=== PATIENT | female | born 1985 | race Caucasian/White ===

== ENCOUNTER 2022-04-19 14:55 | Emergency (ER) | payer BC, SELFPAY ==
--- NOTE | ~2022-04-19 | XR_ITS ---
XR tibia fibula LT 2V 04/19/2022 15:19 INDICATION: Left leg pain after injury PROCEDURE: 2 views left tibia/fibula COMPARISON: No prior studies for comparison. FINDINGS: Fracture, dislocation or subluxation is not identified. The soft tissues appear within norm al limits. No foreign bodies are identified. IMPRESSION: 1: NO ACUTE BONE OR JOINT ABNORMALITY IDENTIFIED. Reviewed, dictated and finalized at location B. [facility] [employer]
--- NOTE | 2022-04-19 15:00 | ED.LOWEXIN ---
HPI - Extremity Injury (Lower) General Chief Complaint: Extremity Injury, Lower Stated Complaint: INJURED L LEG Time Seen by Provider: 04/19/22 15:00 Source: patient and RN notes reviewed History of Present Illness HPI Narrative: Patient is a 36-year-old female who presents to urgent care with complaints of left lower leg pain. Patient states that she was scanned approximately 1 week ago, fell and hit the boot on to her left lower leg. Patient states that she has had some numbness and tingling radiating down the leg and into the foot at times. Patient has attempted to keep it elevated with the use of ice. Patient is also use Tylenol and ibuprofen. 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 No other acute complaints or injuries. No acute distress noted. Patient aware of the plan of care. Some parts of this dictation were generated by voice recognition software and may contain typographical and/or grammatical inaccuracies. Related Data Home Medications Medication Instructions Recorded Confirmed No Home Medications 04/19/22 04/19/22 Allergies Allergy/AdvReac Type Severity Reaction Status Date / Time No Known Allergies Allergy Verified 04/19/22 15:07 Review of Systems Review of Systems: CONSTITUTIONAL: Denies fever, chills, or sweats. EYES: Denies visual changes, redness, or discharge. ENT: Denies rhinorrhea, congestion, sore throat, or otalgia. CARDIOVASCULAR: Denies chest pain, palpitations, or edema. RESPIRATORY: Denies cough or dyspnea. GASTROINTESTINAL: Denies abdominal pain, nausea, vomiting, or diarrhea. GENITOURINARY: Denies dysuria or hematuria. SKIN: Denies rash or itching. MUSCULOSKELETAL: Reports of [id number] pain to the left lower leg radiating to the left foot NEUROLOGIC: Denies headache, numbness, or weakness. All other systems reviewed are negative, except as documented in HPI. PMFSH Comments At the time of my signature, I reviewed and agree with the nursing past medical, surgical, social, and family history. There is no relevant family history pertinent to the patient complaint. Exam Narrative: GENERAL: This is a well-nourished, well-developed patient, in no apparent distress. HEAD: normocephalic, atraumatic. EYES: PERRL. Sclera clear/white. Vision is grossly intact. EARS: External ears normal NOSE: External nose normal with no obvious nasal discharge, nares without redness, no rhinorrhea. THROAT: Mucous membranes moist NECK: Neck supple SKIN: warm, intact with no suspicious lesions or rash, good texture and turgor. NEURO: awake, alert, and oriented to person, place and time. There were no obvious focal neurologic abnormalities. EXTREMITIES: Mild ecchymosis noted to the dorsal lateral aspect of the left foot with mild tenderness to the mid shaft of the left tibia without ecchymosis, deformity, edema or erythema. Positive strong left pedal pulse with capillary refill less than 2 seconds. Course Course Level of Care: Express Care Visit Vital Signs Vital signs: Vital Signs Oxygen Delivery Room Air 04/19/22 15:04 Temperature 97.8 F 04/19/22 15:05 Pulse Rate 84 04/19/22 15:05 Respiratory Rate 16 04/19/22 15:05 Blood Pressure 117/81 04/19/22 15:05 Pulse Oximetry 100 04/19/22 15:05 Oxygen Delivery Room Air 04/19/22 15:04 reviewed MDM - Extremity Injury (Lower) MDM Narrative Medical decision making narrative: Reviewed x-ray results with the patient. She is aware that x-ray shows no bony fracture or abnormality. Pain is likely due to the inflammation/hematoma that developed when you hit that leg initially. Swelling/bruising below the injury is normal post contusion, especially on the lower extremity. Advised the patient to continue elevating, with the knee bent. Continue Tylenol/ibuprofen/ice. Try to stay off her feet for long periods of time. Follow-up with your PCP or referred Ortho for any c
[2022-04-19 15:05] VITALS: BP 117/81; PULSE 84; RESP 16; TEMP 36.6; O2SAT 100
== END 2022-04-19 15:55 | disposition home or self-care (01) ==
PROVIDERS: Emergency Provider Nurse Practitioner Family; PCP Family Medicine
DX: S80.12XA Contusion of left lower leg, initial encounter (principal); W19.XXXA Unspecified fall, initial encounter
CPT/HCPCS: 73590; 99213; G0463

== ENCOUNTER 2023-10-03 16:38 | Emergency (ER) | payer BC, SELFPAY ==
[2023-10-03 17:08] VITALS: BP 122/77; PULSE 66; RESP 16; TEMP 36.6; O2SAT 100
--- NOTE | 2023-10-03 17:43 | ED.BACK ---
HPI - Back Pain/Injury General Chief Complaint: Back Pain/Injury Stated Complaint: Back Pain Time Seen by Provider: 10/03/23 17:43 Source: patient, RN notes reviewed and old records reviewed Mode of arrival: ambulatory Limitations: no limitations History of Present Illness HPI Narrative: Patient presents with complaints of left lower back pain that has been present for approximately 10 days. She reports that this has been an intermittent problem for her for quite some time. She sees a chiropractor. Has been to a chiropractor in the past couple of days for this particular episode. She denies any injury or trauma. She has been taking Tylenol and ibuprofen. She reports that she continues to have pain despite chiropractic and [id number] medications. She denies any numbness or tingling. She is able to walk with a steady gait. She voices no other concerns or complaints today Related Data Allergies Allergy/AdvReac Type Severity Reaction Status Date / Time No Known Allergies Allergy Verified 10/03/23 17:48 Review of Systems Review of Systems: All systems reviewed & are unremarkable except as noted in HPI and below Constitutional: Constitutional: Reports no additional constitutional complaints ENT: Reports system reviewed and no additional complaints, except as documented Cardiovascular: Cardiovascular: Reports no additional cardiovascular complaints Respiratory: Respiratory: Reports no additional respiratory complaints Gastrointestinal: Gastrointestinal: Reports no additional gastrointestinal complaints Musculoskeletal: Musculoskeletal: Reports as per HPI, Denies abnormal gait and Reports back pain Neurologic: Denies numbness, Denies tingling and Denies paresthesias Exam Const: General: cooperative, no acute distress, alert and awake Orientation/consciousness: oriented to person, oriented to place and oriented to time HENMT: Head: normal to inspection Resp: Effort & Inspection: normal respiratory effort and able to speak in complete sentences Auscultation: clear to auscultation bilaterally, no crackles, no rales, no rhonchi and no wheezes Cardio: Palpation: normal PMI Rate: regular rate Rhythm: regular rhythm Heart sounds: S1 normal heart sound present and S2 normal heart sound present : General: Yes no CVA tenderness Back/Spine/Pelvis: Back: no CVA tenderness Cervical Spine: cervical ROM normal Thoracic/Lumbar Spine: thoraco-lumbar ROM limited and thoraco-lumbar spasm on the left in the lower thoracic Neuro: General: oriented to person, oriented to place and oriented to time Cranial nerves: Yes CN's II-XII intact bilaterally Gait exam (Neuro): Normal gait present Psych: Appearance: grossly normal Thought process: Normal thought process present Insight: Good insight present (Psych) Judgement: Good judgement present (Psych) Course Course Level of Care: Express Care Visit Vital Signs Vital signs: Vital Signs Temperature 97.9 F 10/03/23 17:08 Pulse Rate 66 10/03/23 17:08 Respiratory Rate 16 10/03/23 17:08 Blood Pressure 122/77 10/03/23 17:08 Pulse Oximetry 100 10/03/23 17:08 Temperature 97.9 F 10/03/23 17:08 Pulse Rate 66 10/03/23 17:08 Respiratory Rate 16 10/03/23 17:08 Blood Pressure 122/77 10/03/23 17:08 Pulse Oximetry 100 10/03/23 17:08 MDM - Back Pain/Injury MDM Narrative Medical decision making narrative: Patient has already had imaging related to this pain. Sees a chiropractor regularly. This is an exacerbation of chronic issue. Palpable muscle spasm noted, pain radicular and pattern. Prednisone burst with muscle relaxants. Follow up with primary care provider, emergency department with new or worse symptoms. Discharge instructions reviewed with patient, as well as provided in writing per nursing staff. The instructions also include specific and strict return/GO TO THE ER as well as f/u information. All questions have been answered, a
== END 2023-10-03 17:56 | disposition home or self-care (01) ==
PROVIDERS: Emergency Provider Nurse Practitioner Family; PCP Family Medicine
DX: M54.16 Radiculopathy, lumbar region (principal)
CPT/HCPCS: 99213; G0463